=== PATIENT | male | born 2000 | race American Indian/Alaskan Native ===

== ENCOUNTER 2019-07-20 17:47 | Emergency (ER) | payer SELFPAY ==
[2019-07-20 18:21] VITALS: BP 159/91
--- NOTE | 2019-07-20 20:42 | Emergency Department Report ---
Upper Respiratory HPI - HPI Chief Complaint: Upper Respiratory Infection Stated Complaint: SORE THROAT/CHILLS/ABD PAIN Time Seen by Provider: 07/20/19 20:36 URI Symptoms: Rhinorrhea: Yes, Sore Throat: Yes, Ear Pain: Yes, Cough: Yes, Shortness of Breath: No, Sick Contacts: Yes, Unable to Take Fluids: No, Urine Output Abnormal: No, Listless Behavior: No Other History: Mr. Moses is as 18 y/o aam with hx of asthma, who presents for cough productive green, sore throat, head congestion and noc wheezing. States some fever , no fever noted in triage. - Home Meds and Allergies Home Medications: Previous Rx's Medication Instructions Recorded Last Taken Type Albuterol INH(or & Nicu Only) 2 puff IH QID PRN #8.5 gram 07/20/19 Unknown Rx [ProAir HFA Inhaler] Azithromycin [Zithromax Z-JAMEY] 250 mg PO DAILY #6 tablet 07/20/19 Unknown Rx Benzonatate [Tessalon Perles] 100 mg PO Q8HR PRN #30 capsule 07/20/19 Unknown Rx Ibuprofen [Motrin 800 MG tab] 800 mg PO Q8HR PRN #30 tablet 07/20/19 Unknown Rx predniSONE [Deltasone] 40 mg PO QDAY 5 Days #10 tab 07/20/19 Unknown Rx Allergies/Adverse Reactions: Allergies Allergy/AdvReac Type Severity Reaction Status Date / Time No Known Allergies Allergy Unverified 07/20/19 18:21 ED Review of Systems ROS: Stated complaint: SORE THROAT/CHILLS/ABD PAIN Other details as noted in HPI Constitutional: denies: chills, fever Eyes: denies: eye pain, eye discharge, vision change ENT: ear pain, throat pain, congestion Respiratory: cough, wheezing. denies: shortness of breath Cardiovascular: denies: chest pain, palpitations Endocrine: no symptoms reported Gastrointestinal: denies: abdominal pain, nausea, vomiting, diarrhea Genitourinary: denies: urgency, dysuria Musculoskeletal: denies: back pain, joint swelling, arthralgia Skin: denies: rash, lesions Neurological: denies: headache, weakness, numbness, paresthesias, confusion, vertigo Psychiatric: denies: anxiety, depression ED Past Medical Hx - Past Medical History Previous Medical History?: Yes Hx Asthma: Yes - Surgical History Past Surgical History?: No - Social History Smoking Status: Current Every Day Smoker Substance Use Type: None, Marijuana - Medications Home Medications: Home Medications Medication Instructions Recorded Confirmed Last Taken Type Albuterol INH(or & Nicu Only) 2 puff IH QID PRN #8.5 gram 07/20/19 Unknown Rx [ProAir HFA Inhaler] Azithromycin [Zithromax Z-JAMEY] 250 mg PO DAILY #6 tablet 07/20/19 Unknown Rx Benzonatate [Tessalon Perles] 100 mg PO Q8HR PRN #30 capsule 07/20/19 Unknown Rx Ibuprofen [Motrin 800 MG tab] 800 mg PO Q8HR PRN #30 tablet 07/20/19 Unknown Rx predniSONE [Deltasone] 40 mg PO QDAY 5 Days #10 tab 07/20/19 Unknown Rx ED Bronchiolitis Physical Exam - Exam General: Vital signs noted. No distress. Alert and acting appropriately. HEENT: Yes Pharyngeal Erythema, Yes Rhinorrhea, No Conjuctival Injection, No Dry Mucous Membranes Ear: Both TM Erythema, Neither TM Bulge, Neither EAC Discharge Neck: Yes Adenopathy, No Rigidity Lungs: Yes Good Air Exchange, Yes Wheezes, Yes Cough (yellow clear post nasal drip ), No Clear Lung Sounds (mild exp wheezes bilat ), No Stridor, No Nasal Flaring, No Retractions, No Use of Accessory Muscles Heart: Yes Regular, No Murmur Abdomen: Yes Normal Bowel Sounds, No Tenderness, No Peritoneal Signs Skin: No Rash, No Eczema Neurologic: Alert and oriented, no deficits. Musculoskeletal: Unremarkable. ED Physical Exam - General Limitations: No Limitations General appearance: alert, in no apparent distress - Head Head exam: Present: atraumatic, normocephalic - Eye Eye exam: Present: normal appearance, PERRL, EOMI - ENT ENT exam: Present: mucous membranes moist - Expanded ENT Exam Expanded Ear exam: Present: normal external inspection TM/Canal exam: Erythema: Right TM, Left TM Throat exam: Positive: tonsillar erythema, tonsillomegaly, other (clear yellow post nasal drip ). Negative: tonsillar exudate, R peritonsillar mass, L peritonsillar mass - Neck Neck exam: Present: normal inspection, lymphadenopathy. Absent: tenderness, full ROM - Respiratory Respiratory exam: Present: normal lung sounds bilaterally, wheezes (bilat exp wheezing upper lobes ). Absent: respiratory distress, chest wall tenderness - Cardiovascular Cardiovascular Exam: Present: regular rate, normal rhythm, normal heart sounds. Absent: systolic murmur, diastolic murmur, rubs, gallop - GI/Abdominal GI/Abdominal exam: Present: soft, normal bowel sounds. Absent: distended, tenderness, guarding, rebound, rigid, bruit, hernia - Rectal Rectal exam: Present: deferred - Extremities Exam Extremities exam: Present: normal inspection - Back Exam Back exam: Present: normal inspection, full ROM, tenderness - Neurological Exam Neurological exam: Present: alert, oriented X3, CN II-XII intact, normal gait - Psychiatric Psychiatric exam: Present: normal affect, normal mood - Skin Skin exam: Present: warm, dry, intact, normal color. Absent: rash ED Course Vital Signs 07/20/19 18:18 Temperature 98.7 F Pulse Rate 95 H Respiratory 18 Rate Blood Pressure 159/91 O2 Sat by Pulse 100 Oximetry ED Medical Decision Making - Medical Decision Making This is bronchitis, with aom, plan: albuterol, prednisone, azithromycin, ibuprofen, tessalon, follow up with pcp in 2-3 days. pt dc'd to home in stable condition. Critical care attestation.: If time is entered above; I have spent that time in minutes in the direct care of this critically ill patient, excluding procedure time. ED Disposition Clinical Impression: Bronchitis Pharyngitis Qualifiers: Pharyngitis/tonsillitis etiology: unspecified etiology Qualified Code(s): J02.9 - Acute pharyngitis, unspecified AOM (acute otitis media) Qualifiers: Otitis media type: serous Laterality: bilateral Recurrence: non-recurrent Qual ified Code(s): H65.03 - Acute serous otitis media, bilateral Disposition: DC-01 TO HOME OR SELFCARE Is pt being admited?: No Does the pt Need Aspirin: No Condition: Stable Instructions: Acute Bronchitis (ED), Otitis Media (ED) Prescriptions: predniSONE [Deltasone] 40 mg PO QDAY 5 Days #10 tab Ibuprofen [Motrin 800 MG tab] 800 mg PO Q8HR PRN #30 tablet PRN Reason: pain fever Albuterol INH(or & Nicu Only) [ProAir HFA Inhaler] 2 puff IH QID PRN #8.5 gram PRN Reason: Shortness Of Breath Benzonatate [Tessalon Perles] 100 mg PO Q8HR PRN #30 capsule PRN Reason: Cough Azithromycin [Zithromax Z-JAMEY] 250 mg PO DAILY #6 tablet Referrals: LAVELL CRUMP MD [Staff Physician] - 3-5 Days Forms: Work/School Release Form(ED) Time of Disposition: 20:52
== END 2019-07-20 21:01 | disposition home or self-care (01) ==
LOC: ED 17:47
DX: J40 Bronchitis, not specified as acute or chronic (principal); H66.93 Otitis media, unspecified, bilateral; F17.200 Nicotine dependence, unspecified, uncomplicated; F12.10 Cannabis abuse, uncomplicated; Z79.899 Other long term (current) drug therapy